=== PATIENT | male | born 1970 | race African-American/Black ===

== ENCOUNTER 2016-08-18 23:13 | Emergency (ER) | payer BC ==
[2016-08-18 23:20] VITALS: BP 187/108; BMI 28.4
[2016-08-19 00:29] LABS: BILIRUBIN,URINE NEGATIVE (NEGATIVE); BLOOD/HEMOGLOBIN,URINE NEGATIVE (NEGATIVE); GLUCOSE, URINE NEGATIVE (NEGATIVE); KETONES,URINE NEGATIVE (NEGATIVE); LEUKOCYTE ESTERASE ,URINE NEGATIVE (NEGATIVE); NITRITES,URINE NEGATIVE (NEGATIVE); PH,URINE 6.5 (5.0 - 8.0); PROTEIN,URINE 1+ (NEGATIVE); UROBILINOGEN,URINE NORMAL (NORMAL)
--- NOTE | 2016-08-19 00:29 | DR.GENAD ---
HPI - PCP Primary Care Physician: NFD - Complaint/Symptoms Chief Complaint:: Patient states that a condom broke on him Tuesday. Two days later he started having a burning sensation all the time and especially when it chapa. He states that he took antibiotics that he had laying around but he does not know the exact name or dose of the medication. Self Treatment fo Chief Complaint: Antibiotics unspecified - Source History Provided: Patient - Mode of Arrival Mode of Arrival: Ambulatory - Timing Onset of Chief Complaint: 08/17/16 PMH - PMH Past Medical History: Yes Past Medical History: Hypertension Past Surgical History: No - Family History History of Family Medical Conditions: Yes Family Medical History: Hypertension - Social History Does patient currently use any type of tobacco product: No Have you used tobacco products in the last 12 months: No Type of Tobacco Use: None Does any household member use tobacco: No Alcohol Use: None Do you use any recreational Drugs:: No Lives With: Family Lives Where: Home - infectious screening In the last 2 months have you had wt loss of >10#?: NO Have you had fever, night sweats or hemotysis?: No Have you traveled outside the country in the last 6 months?: No Isolation: Standard ROS - Review of Systems Constitutional: Diaphoresis ENTM: No Symptoms Reported Respiratoy: No Symptoms Reported Cardiovascular: No Symptoms Reported Gastrointestinal/Abdominal: No Symptoms Reported Genitourinary: No Symptoms Reported Neurological: No Symptoms Reported Musculoskeletal: No Symptoms Reported Integumentary: No Symptoms Reported Hematologic/Lymphatic: No Symptoms Reported Endocrine: No Symptoms Reported Psychiatric: No Symptoms Reported All Other Systems: Reviewed and Negative PE - Vital Signs Vitals: Temperature 97.7 F Pulse Rate 60 Respiratory Rate 20 Blood Pressure 187/108 O2 Sat by Pulse Oximetry 100 - General Limitations: No Limitations General Appearance: Alert, In No Apparent Distress - Head Head Exam: Normal Inspection, Atraumatic - Eyes Eye exam: Normal Appearance, PERRL, EOMI - ENT ENT Exam: Normal Exam External Ear Exam: Normal External Inspection TM/Canal Exam: Bilateral Normal Nose Exam: Normal Nose Exam, Sinus Tenderness Mouth Exam: Normal Inspection Throat Exam: Normal Inspection - Neck Neck Exam: Normal Inspection, Full ROM - Chest Chest Inspection: Normal Inspection - Respiratory Respiratory Exam: Normal Lung Sounds Bilat Respiratory Exam: Bilateral Clear to Auscultation - Cardiovascular Cardiovascular Exam: Regular Rate, Normal Rhythm - Abdominal Exam Abdominal Exam: Normal Inspection, Normal Bowel Sounds Abdominal Tenderness: negative: RUQ, RLQ, LUQ, LLQ, Epigastrium, Suprapubic, Diffuse, Mild, Moderate, Severe, Other - Extremities Extremities Exam: Normal Inspection, Full ROM - Back Back Exam: Normal Inspection, Full ROM - Neurologic Neurological Exam: Alert, Oriented X3, CN II-XII Intact - Psychiatric Psychiatric Exam: Normal Affect, Normal Mood - Skin Skin Exam: Warm, Dry, Intact ROR - Labs Reviewed Laboratory: Specimen Type Random urine 08/19/16 00:06 Urine Color Yellow (YELLOW) 08/19/16 00:06 Urine Appearance Clear (CLEAR) 08/19/16 00:06 Urine pH 6.5 (5.0 - 8.0) 08/19/16 00:06 Ur Specific [place] 1.015 (1.000-1.030) 08/19/16 00:06 Urine Protein 1+ (NEGATIVE) 08/19/16 00:06 Urine Glucose (UA) Negative (NEGATIVE) 08/19/16 00:06 Urine Ketones Negative (NEGATIVE) 08/19/16 00:06 Urine Occult Blood Negative (NEGATIVE) 08/19/16 00:06 Urine Nitrite Negative (NEGATIVE) 08/19/16 00:06 Urine Bilirubin Negative (NEGATIVE) 08/19/16 00:06 Urine Urobilinogen Normal (NORMAL) 08/19/16 00:06 Ur Leukocyte Esterase Negative (NEGATIVE) 08/19/16 00:06 Urine RBC None seen /HPF (NEGATIVE) 08/19/16 00:06 Urine WBC None seen /HPF (NEGATIVE) 08/19/16 00:06 Ur Squamous Epith Cells Rare /HPF (NEGATIVE) 08/19/16 00:06 Urine Bacteria Negative /HPF (NEGATIVE) 08/19/16 00:06 Ur Culture Indicated? No/not indicated 08/19/16 00:06 - Diagnosis Discharge Problem: STD (male) - Discharge Plan Condition: Stable - Follow ups/Referrals Follow ups/Referrals: NFD,None [Primary Care Provider] - 3 days - Instructions
[2016-08-19 00:35] LABS: APPEARANCE,URINE CLEAR (CLEAR); COLOR,URINE YELLOW (YELLOW); RBC,URINE NONE SEEN /HPF (NEGATIVE)
[2016-08-19 00:36] LABS: BACTERIA,URINE NEGATIVE /HPF (NEGATIVE); SQUAMOUS EPITHELIAL CELL,UR RARE /HPF (NEGATIVE)
[2016-08-19] MEDS ORDERED: ROCEPHIN VIAL 500 MG IM ONE (00:41)
[2016-08-19] MEDS ORDERED: ROCEPHIN VIAL 500 MG ONE (01:24)
[2016-08-19 02:01] LABS: CHLAMYDIA TRACH URINE NOT DETECTED (NOT DETECT)
== END 2016-08-19 01:32 | disposition home or self-care (01) ==
LOC: ER 23:13
DX: A64 Unspecified sexually transmitted disease (principal)
CPT/HCPCS: 81001; 87491; 87591; 96372; 99281; 99282; J0696

== ENCOUNTER 2016-09-11 19:50 | Emergency (ER) | payer BC ==
[2016-09-11 20:01] VITALS: BP 162/101; BMI 28.1
[2016-09-11 20:16] LABS: BILIRUBIN,URINE NEGATIVE (NEGATIVE); BLOOD/HEMOGLOBIN,URINE NEGATIVE (NEGATIVE); GLUCOSE, URINE NEGATIVE (NEGATIVE); KETONES,URINE NEGATIVE (NEGATIVE); LEUKOCYTE ESTERASE ,URINE NEGATIVE (NEGATIVE); NITRITES,URINE NEGATIVE (NEGATIVE); PH,URINE 6.5 (5.0 - 8.0); PROTEIN,URINE NEGATIVE (NEGATIVE); UROBILINOGEN,URINE 1+ (NORMAL)
--- NOTE | 2016-09-11 20:29 | DR.GENAD ---
HPI - PCP Primary Care Physician: NFD - Complaint/Symptoms Chief Complaint Doctors Comments: I agree with statement Chief Complaint:: "All day yesterday and today I have been having some burning when I pee. I have been taking doxycycline and amox but it isn't helping. My girl says she has a UTI but I think it may be more than that." - Source History Provided: Patient - Mode of Arrival Mode of Arrival: Ambulatory - Timing Onset of Chief Complaint: 09/10/16 PMH - PMH Past Medical History: Yes Past Medical History: Hypertension Past Surgical History: No - Family History History of Family Medical Conditions: Yes Family Medical History: Hypertension - Social History Does patient currently use any type of tobacco product: No Have you used tobacco products in the last 12 months: No Type of Tobacco Use: None Does any household member use tobacco: No Alcohol Use: None Do you use any recreational Drugs:: No Lives With: Spouse Lives Where: Home - infectious screening In the last 2 months have you had wt loss of >10#?: NO Have you had fever, night sweats or hemotysis?: No Have you traveled outside the country in the last 6 months?: No Isolation: Standard ROS - Review of Systems Eyes: No Symptoms Reported ENTM: No Symptoms Reported Respiratoy: No Symptoms Reported Cardiovascular: No Symptoms Reported Gastrointestinal/Abdominal: No Symptoms Reported Genitourinary: No Symptoms Reported Neurological: No Symptoms Reported Musculoskeletal: No Symptoms Reported Integumentary: No Symptoms Reported Hematologic/Lymphatic: No Symptoms Reported Endocrine: No Symptoms Reported Psychiatric: No Symptoms Reported All Other Systems: Reviewed and Negative PE - Vital Signs Vitals: Temperature 97.9 F Pulse Rate 64 Respiratory Rate 18 Blood Pressure 162/101 O2 Sat by Pulse Oximetry 99 - General Limitations: No Limitations General Appearance: Alert, In No Apparent Distress - Head Head Exam: Normal Inspection, Atraumatic - Eyes Eye exam: Normal Appearance, PERRL, EOMI - ENT ENT Exam: Normal Exam External Ear Exam: Normal External Inspection TM/Canal Exam: Bilateral Normal Nose Exam: Normal Nose Exam Mouth Exam: Normal Inspection Throat Exam: Normal Inspection - Neck Neck Exam: Normal Inspection - Chest Chest Inspection: Normal Inspection - Respiratory Respiratory Exam: Normal Lung Sounds Bilat Respiratory Exam: Bilateral Clear to Auscultation - Cardiovascular Cardiovascular Exam: Regular Rate - Abdominal Exam Abdominal Exam: Normal Inspection Abdominal Tenderness: negative: RUQ, RLQ, LUQ, LLQ, Epigastrium, Suprapubic, Diffuse, Mild, Moderate, Severe, Other - Extremities Extremities Exam: Normal Inspection - Back Back Exam: Normal Inspection - Neurologic Neurological Exam: Alert, CN II-XII Intact - Psychiatric Psychiatric Exam: Normal Affect - Skin Skin Exam: Warm, Dry, Intact Course - Treatment Treatment: Patient is unwilling to wait on results or to have ED call him with results. The wait time for results per lab is 1hr 45 minutes. - Reevaluation 1st: Unchanged ROR - Labs Reviewed Laboratory: Specimen Type Clean catch urine 09/11/16 20:03 Urine Color Yellow (YELLOW) 09/11/16 20:03 Urine Appearance Clear (CLEAR) 09/11/16 20:03 Urine pH 6.5 (5.0 - 8.0) 09/11/16 20:03 Ur Specific [place] 1.015 (1.000-1.030) 09/11/16 20:03 Urine Protein Negative (NEGATIVE) 09/11/16 20:03 Urine Glucose (UA) Negative (NEGATIVE) 09/11/16 20:03 Urine Ketones Negative (NEGATIVE) 09/11/16 20:03 Urine Occult Blood Negative (NEGATIVE) 09/11/16 20:03 Urine Nitrite Negative (NEGATIVE) 09/11/16 20:03 Urine Bilirubin Negative (NEGATIVE) 09/11/16 20:03 Urine Urobilinogen 1+ (NORMAL) 09/11/16 20:03 Ur Leukocyte Esterase Negative (NEGATIVE) 09/11/16 20:03 Urine RBC 0-3 /HPF (NEGATIVE) 09/11/16 20:03 Urine WBC 0-3 /HPF (NEGATIVE) 09/11/16 20:03 Ur Squamous Epith Cells Few /HPF (NEGATIVE) 09/11/16 20:03 Urine Bacteria Negative /HPF (NEGATIVE) 09/11/16 20:03 Ur Culture Indicated? No/not indicated 09/11/16 20:03 - Diagnosis Discharge Problem: Dysuria, Potential exposure to STD - Discharge Plan Condition: Stable - Follow ups/Referrals Follow ups/Referrals: NFD,None [Primary Care Provider] - 3 days - Instructions
[2016-09-11 20:33] LABS: APPEARANCE,URINE CLEAR (CLEAR); BACTERIA,URINE NEGATIVE /HPF (NEGATIVE); COLOR,URINE YELLOW (YELLOW); RBC,URINE 0-3 /HPF (NEGATIVE); SQUAMOUS EPITHELIAL CELL,UR FEW /HPF (NEGATIVE)
[2016-09-11 22:18] LABS: CHLAMYDIA TRACH URINE NOT DETECTED (NOT DETECT)
== END 2016-09-11 21:35 | disposition left against medical advice (07) ==
LOC: ER 19:50
DX: R30.0 Dysuria (principal); A64 Unspecified sexually transmitted disease
CPT/HCPCS: 81001; 87491; 87591; 99282